=== PATIENT | female | born 1955 | race Caucasian/White ===

== ENCOUNTER 2016-08-13 13:24 | Emergency (ER) | payer BC ==
[2016-08-13] MEDS ORDERED: methylPREDNISolone 125 MG* 2 ML VIAL IV ONE (13:33)
[2016-08-13] MEDS ORDERED: EPINEPHrine AMP 1 MG/ML SUBCUT ONE ×2 (13:33→14:25)
[2016-08-13] MEDS ORDERED: diPHENhydraMINE IV* 50 MG/ML 1 ml VIAL (BENADRYL) IM ONE (13:34)
[2016-08-13] MEDS ORDERED: Famotidine IV* 10 MG/ML 2 ML (20 mg) ONE (13:40)
--- NOTE | 2016-08-13 13:54 | UC ---
Allergic Reaction HPI - HPI Summary HPI Summary: 61 YEAR OLD FEMALE PRESENTS WITH COMPLAINS OF SEVERE ANAPHYLACTIC REACTION TO BEE STING. - History of Current Complaint Stated Complaint: BEE STING - ALLERGIC REACTION Time Seen by Provider: 08/13/16 13:48 Character: Swelling, Pruritus, Hives Review of Systems Constitutional: Negative Skin: Rash Eyes: Negative ENT: Negative Respiratory: Negative Cardiovascular: Negative Gastrointestinal: Negative Genitourinary: Negative Motor: Negative Neurovascular: Negative Musculoskeletal: Negative Neurological: Negative Psychological: Negative All Other Systems Reviewed And Are Negative: Yes Physical Exam Triage Information Reviewed: Yes Eye Exam: Normal ENT Exam: Normal Dental Exam: Normal Neck exam: Normal Neck: Positive: 1 Respiratory Exam: Normal Respiratory: Positive: Respiratory distress Cardiovascular Exam: Normal Abdominal Exam: Normal Musculoskeletal Exam: Normal Neurological Exam: Normal Psychological Exam: Normal Skin Exam: Normal Skin: Positive: rashes Allergic Reaction Course/Dx - Differential Dx/Diagnosis Provider Diagnoses: ALLERGIC REACTION TO BEE STING Discharge - Discharge Plan Condition: Critical Disposition: TRANS HIGHER LVL OF CARE FAC Patient Education Materials: Anaphylaxis (ED) Referrals: Kolby Meadows MD [Primary Care Provider] - As Soon As Possible
[2016-08-13] MEDS ORDERED: NS 0.9% 1000 ML* 1,000 ML IV ONE (14:26)
== END 2016-08-13 13:50 | disposition short-term general hospital (02) ==
LOC: UCCORT 13:24
DX: T63.441A Toxic effect of venom of bees, accidental (unintentional), initial encounter (principal); L50.9 Urticaria, unspecified
CPT/HCPCS: 96372; 99213; G0463; J0171; J1200; J2930